=== PATIENT | male | born 1980 | race Caucasian/White ===

== ENCOUNTER 2020-07-02 10:42 | Emergency (ER) | payer OTHER ==
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
[2020-07-02 12:17] LABS: ACETAMINOPHEN 0 ug/mL (10-30)
== END 2020-07-02 17:00 ==
LOC: JD.ED 10:42
DX: F32.9 Major depressive disorder, single episode, unspecified (principal); R44.3 Hallucinations, unspecified; Z20.828 Contact with and (suspected) exposure to other viral communicable diseases; Z88.1 Allergy status to other antibiotic agents
CPT/HCPCS: 36415; 80053; 80306; 80307; 84443; 85007; 85027; 93005; 93010; 99284; 99285-25; U0002